=== PATIENT | female | born 1970 | race Caucasian/White ===

== ENCOUNTER → 2020-03-08 | Outpatient (CLI) | payer OTHER ==
--- NOTE | 2020-03-12 09:32 | REPMRS ---
Patient History The patient states she had a clinical breast exam in November 2019.Family history of colorectal cancer at age 50 or over in maternal grandmother. Digital Woman Screen Mammo: March 08, 2020 - Exam #: [id number] Bilateral CC and MLO view(s) were taken. Technologist: Tatiana Brooks, Technologist Prior study comparison: October 2018, bilateral digital mammo screening bilat, performed at [facility]. FINDINGS: There are scattered fibroglandular densities. The Volpara volumetric breast density category is:B. There is a new 9 mm well circumscribed density in the right breast, inferior amd medial, anterior third. There is a new 5 mm well circumscribed nodule in the left breast as well, inferior and medialquadrant, posterior third. These merit further evaluation. There has been no other change in the appearance of the mammogram from the prior studies. There is a mild amount of scattered fibroglandular density which is fairly symmetric. There is no other interval development of dominant mass, architectural distortion, or grouped microcalcification suggestive of malignancy. 3-D tomosynthesis shows no additional findings. Assessment: BI-RADS/ACR category 0 mammogram, Incomplete: Need additional imaging evaluation and/or prior mammograms for comparison. Recommendation Ultrasound and special view mammogram of both breasts. This patient's Lifetime Breast Cancer Risk is estimated at 10.6 %. This mammogram was interpreted with the aid of an FDA-approved computer-aided dectection system. Electronically Signed By: Pedro Morelos MD 03/12/20 0932
== END ==
LOC: M WHC 09:20
PROVIDERS: ATTEND Nurse Practitioner
DX: R92.2 Inconclusive mammogram (principal); N63.10 Unspecified lump in the right breast, unspecified quadrant; N63.20 Unspecified lump in the left breast, unspecified quadrant

== ENCOUNTER → 2020-03-08 | Outpatient (REF) | payer OTHER | LOC: M SFHCWAGY 10:40 | PROVIDERS: ATTEND Specialist | DX: R87.610 Atypical squamous cells of undetermined significance on cytologic smear of cervix (ASC-US) (principal) ==

== ENCOUNTER → 2020-03-12 | Outpatient (CLI) | payer OTHER ==
--- NOTE | 2020-03-27 11:38 | REP ---
DIGITAL DIAGNOSTIC BILATERAL MAMMOGRAPHY WITH CAD AND TARGETED BILATERAL BREAST SONOGRAPHY HISTORY: Screening mammography from 03/08/2020 was BI-RADS Category 0 because of a nodular neodensity projecting in each breast. Diagnostic imaging was recommended. Comparison is also made with prior mammography from 02/02/2019. MAMMOGRAPHIC FINDINGS: Magnified focal spot compression CC, MLO, and true ML views confirm the presence of a well-circumscribed nodule in the inferomedial aspect of the right breast at approximately the 3 o'clock position. This measures 9 mm in diameter. No other mammographic finding is seen on the right. On the left, magnified focal spot compression images confirm the presence of a 5-mm well-circumscribed nodule superficially in the subdermal soft tissues inferiorly and medially at approximately 7 o'clock position. No other mammographic abnormality on the left. SONOGRAPHIC FINDINGS: In the right breast at 3 o'clock, 1 cm from the nipple, there is a 7 x 4 x 5 mm cyst. This is felt to account for the mammographic opacity. It is not suspicious sonographically. In the left breast at 7 o'clock, 4 cm from the nipple, there is a complex cyst just beneath the skin, which is felt to account for the mammographic opacity. This is most compatible with a sebaceous cyst. It measures 4 x 4 x 4 mm. IMPRESSION: BI-RADS Category 2 benign findings. There is a subdermal cyst in the 7 o'clock position of the left breast most compatible with sebaceous cyst. Clinical follow-up is advised. There is a simple cyst seen in the right breast by ultrasound. Routine bilateral screening mammography recommended in one year. Patient letter M2. This study was read with the assistance of an [employer] computer-aided detection system. [employer]
== END ==
LOC: M WHC 14:24
PROVIDERS: ATTEND Nurse Practitioner
DX: R92.8 Other abnormal and inconclusive findings on diagnostic imaging of breast (principal); N60.01 Solitary cyst of right breast; N60.02 Solitary cyst of left breast
CPT/HCPCS: 76642; 77066; G0279

== ENCOUNTER → 2020-11-08 | Outpatient (REF) | payer OTHER | LOC: M SFHCWAGY 12:43 | PROVIDERS: ATTEND Specialist | DX: R87.619 Unspecified abnormal cytological findings in specimens from cervix uteri (principal); N76.0 Acute vaginitis | CPT/HCPCS: 87624; G0123 ==

== ENCOUNTER → 2021-03-06 | Outpatient (CLI) | payer OTHER ==
--- NOTE | 2021-03-06 09:06 | REPMRS ---
Patient History The patient states she had a clinical breast exam in November 2020. Family history of colorectal cancer at age 50 or over in maternal grandmother. Patient states no breast complaints today. Patient has signed MRS History Sheet. Digital Woman Screen Mammo: March 06, 2021 - Exam #: [id number] Bilateral CC and MLO view(s) were taken. Technologist: Rachael Chao, Technologist Prior study comparison: March 12, 2020, diagnostic bilateral mammo performed at [facility]. March 08, 2020, bilateral digital woman screen mammo performed at [facility]. FINDINGS: There are scattered fibroglandular densities. Screening. Digital screening (2D) mammography was performed bilaterally in the CC and MLO projections. Additionally, breast tomosynthesis (3D mammography) was performed bilaterally in the CC and MLO projections. Todays exam was compared to the prior exam/exams. By history, the patient has no complaints of a palpable breast abnormality or other significant breast complaints. The breasts are unchanged in size and shape. There are no romel-soft tissue densities or spiculated masses. There is no internal architectural distortion. There are no suspicious romel-calcific clusters. Skin thickening or nipple retraction is not present. IMPRESSION: BI-RADS Category 2- Benign Findings. There is no evidence of malignant alteration of the breasts. Followup examination recommended in one year. The Volpara volumetric breast density category is B, there are scattered areas of fibroglandular densities. This mammogram was read with the assistance of [facility],an FDA approved computer aided detection system for mammography. The lifetime Tyrer-Cuzick score is 10.4 % Negative x-ray reports should not delay surgical consultation if a dominant or clinically suspicious mass is present. Not all breast cancers can be identified by mammography. Therefore, we recommend that you continue to perform regular breast self-examination and physical examination and then promptly contact your physician of any concerns or changes. Adenosis and dense breasts may obscure an underlying neoplasm. Assessment: BI-RADS/ACR category 2 mammogram. Benign Findings. Recommendation Routine screening mammogram of both breasts in 1 year. Electronically Signed By: Ankit Magaña DO 03/06/21 0905
== END ==
LOC: M WHC 07:55
PROVIDERS: ATTEND Specialist
DX: Z12.31 Encounter for screening mammogram for malignant neoplasm of breast (principal)

== ENCOUNTER 2023-08-04 11:18 | Emergency (ER) | payer OTHER ==
[~2023-08-04] VITALS: Ht 157.5 cm; Wt 77.4 kg
[2023-08-04] MEDS ORDERED: PANT40TA29 PO (11:51)
[2023-08-04] MEDS ORDERED: ATOR1TAB19 PO (11:51)
[2023-08-04] MEDS ORDERED: FLAG375C PO (11:51)
[2023-08-04] MEDS ORDERED: CIPR500S PO (11:51)
[2023-08-04] MEDS ORDERED: NICO21PAT TOP (11:51)
[2023-08-04] MEDS ORDERED: CALCCHW4 PO (11:51)
[2023-08-04] MEDS ORDERED: ATEN25TA PO (11:51)
[2023-08-04 14:14] LABS: BASO % 0.1 % (0.0-1.0); EOS # 0.1 10^3/uL (0.0-0.5); EOS % 0.3 % (0.0-3.0); HEMATOCRIT 37.4 % (36.0-47.0); HEMOGLOBIN 12.4 g/dl (12.0-15.5); LYMPH # 2.5 10^3/uL (1.5-5.0); LYMPH % 17.1 % (24.0-44.0); MEAN CORPUSCULAR HEMOGLOBIN 30.2 pg (27.0-33.0); MEAN CORPUSCULAR HGB CONC 33.2 g/dl (32.0-36.5); MONO # 1.3 10^3/uL (0.0-0.8); NEUTROPHILS # 10.7 10^3/uL (1.5-8.5); PLATELET COUNT, AUTOMATED 423 10^3/uL (150-450); RED BLOOD COUNT 4.11 10^6/uL (4.00-5.40); WHITE BLOOD COUNT 14.6 10^3/uL (4.0-10.0)
[2023-08-04 14:49] LABS: BLOOD UREA NITROGEN 14 MG/DL (9-23); CALCIUM LEVEL 9.6 MG/DL (8.5-10.1); CARBON DIOXIDE LEVEL 24 MMOL/L (20-31); CHLORIDE LEVEL 102 MMOL/L (98-107); CREATININE FOR GFR 0.42 MG/DL (0.55-1.30); GLOMERULAR FILTRATION RATE > 60.0 (>51); GLUCOSE, FASTING 106 MG/DL (60-100); POTASSIUM SERUM 4.3 MMOL/L (3.5-5.1); SODIUM LEVEL 136 MMOL/L (136-145)
[2023-08-04] MEDS: NS 1,000 ML IV ONE (14:54)
[2023-08-04] MEDS ORDERED: ISOVUE-370 76% 100ML VIAL As Ordered ONE (15:39)
[2023-08-04 16:36] VITALS: BP 103/55; TEMP 98.2; O2SAT 96
== END 2023-08-04 16:51 | disposition home or self-care (01) ==
LOC: M ED 11:18
DX: R10.32 Left lower quadrant pain (principal); K92.1 Melena; D72.829 Elevated white blood cell count, unspecified; K21.9 Gastro-esophageal reflux disease without esophagitis; Z79.2 Long term (current) use of antibiotics; Z79.02 Long term (current) use of antithrombotics/antiplatelets; Z79.899 Other long term (current) drug therapy
CPT/HCPCS: 74177; 80048; 85025; 86850; 86900; 86901; 96360; 96361; 99284; Q9967